=== PATIENT | male | born 1950 ===

== ENCOUNTER 2024-08-20 07:12 | Observation (INO) | payer OTHER ==
[2024-08-20] VITALS (12 sets, daily range): BP systolic 92–174; BP diastolic 59–78
[~2024-08-20] VITALS: Ht 180.3 cm; Wt 198.0 kg
[~2024-08-20 07:12] MED LIST: ACET325 PO; ATOR40TA PO; Amlodipine Bes2.5 MG PO; Aspir 8181 MG PO; FAMO20 PO; LOVA40 PO; TRAZ50 PO; Vitamin C100 M1 PO
[2024-08-20] MEDS ORDERED: Verapamil HCL 2.5 MG/ML 2ML Injection ONE (07:21)
[2024-08-20] MEDS ORDERED: Heparin Sodium 1000 Units/ML 10ML MDV ONE ×2 (07:21→08:57)
[2024-08-20] MEDS ORDERED: NS 1,000 ML IV ONE ×2 (07:22→07:47)
[2024-08-20] MEDS ORDERED: Nitroglycerin 2 MG/20 ML BTL ONE (07:22)
[2024-08-20] MEDS ORDERED: NS 250 ML IV ONE (07:22)
[2024-08-20] MEDS ORDERED: Midazolam HCl 1MG / ML 2ML Vial ONE (07:46)
[2024-08-20] MEDS ORDERED: FentaNYL Citrate 50 MCG/ML 2 ML Injection ONE (07:46)
[2024-08-20] MEDS ORDERED: Tirofiban HCL Monohydrate 3.75 MG/15 ML Vial ONE (08:57)
[2024-08-20] MEDS ORDERED: Atropine Sulfate 0.1 MG/ML 10ML SYR ONE (09:08)
[2024-08-20] MEDS ORDERED: Phenylephrine HCl 100 MCG/ML-NS 10MLSYR (1MG/10ML) ONE (09:14)
[2024-08-20] MEDS ORDERED: Clopidogrel Bisulfate 300 MG Cap ONE (09:42)
[2024-08-20] MEDS ORDERED: CLOP75 PO (10:40)
--- NOTE | 2024-08-20 11:58 | NUR ---
0955- PT BACK TO RECOVERY ROOM S/P PCI WITH 4 STENTS PLACED TO RCA. PT AWAKE AND ALERT, DENIES COMPLAINTS, SITTING UP IN RECLINER. PT SLIGHTLY HYPOTENSIVE, W MAPS >65, PT ASYMPTOMATIC, UP TO BATHROOM RIRI WELL. PT ATE/DRANK RIRI WELL. PT'S AT BEDSIDE. RIGHT RADIAL TR BAND SITE REVIEWED W/TECH; WNL. SITE SOFT W/O BLEEDING, TENDERNESS, OR SWELLING. 1138- 3CC AIR REMOVED FROM BAND, SCANT OOZE NOTED, 2 CC REPLACED. SITE W/O FURTHER BLEEDING, AREA SOFT AND NONTENDER
[2024-08-20] MEDS ORDERED: Calcium Carbonate 500 MG Tab Chew PO ONE (14:40)
--- NOTE | 2024-08-20 14:41 | NUR ---
1235- ALL AIR REMOVED FROM TR BAND. SITE STABLE, W/O HEMATOMA, SWELLING, PAIN, OR BLEEDING. TR BAND REMOVED AT 1330. SITE STABLE. DRSG PLACED. WRIST IMMOBILIZER PLACED. AFTER VERBAL AND WRITTEN DISCHARGE INSTRUCTIONS GIVEN, PT INFORMED ME THAT HE HAD 1-2/10 CHEST PRESSURE TO LEFT CHEST AREA. DENIES SHARP OR ACHE, STATES PAIN IS A VERY MILD CONSTANT PRESSURE. OF NOTE, PT IS BELCHING OFTEN, PT DENIES THAT IT FEELS LIKE HEARTBURN. DR PERKINS CALLED AT 1339 AND GIVEN FULL UPDATE. PT TO BE ADMITTED AND OBSERVED OVER NIGHT. DR PETER CONTACTED, SHORTLY AFTER DR PETER AT BEDSIDE SEE PATIENT. DR MCDONALD ALSO CALLED AND GIVEN UPDATE. PT HAS BEEN UP TO VOID TWICE. PT IS CALM, VISITING WITH , NO DISTRESS NOTED. BP STABLE, PT BRADYCARDIC IN 40'S. BP ADMITTED W HR IN 50'S. PT DENIES DIZZINESS. LEFT FOREARM DC'D WITH DC PLANS. NEW 20G IV PLACED TO LEFT AC AREA. AWAITING BED AND ADMITTING ORDERS.
[2024-08-20] MEDS ORDERED: Acetaminophen 325 MG TABLET PO PRN (15:40)
[2024-08-20] MEDS ORDERED: FLU VACC TS2024-25(6MOS UP)/PF 45 MCG/0.5 ML SYRINGE IM SCH (15:40)
--- NOTE | 2024-08-20 16:26 | NUR ---
REPORT CALLED TO [facility]OMEN SPECIALIST. PT TO ROOM PCU 7 AT 1600 IN STABLE CONDITION. RIGHT RADIAL SITE ACCESSED WITH RN AND REMAINS STABLE. PT HAS REQUESTED TUMS WHICH WAS GIVEN PER DR PETER; NO CHANGE IN CHEST PRESSURE. PT REPORTS MILD CHEST PRESSURE 1-2/10 ON TRANSFER.
--- NOTE | 2024-08-20 16:36 | NUR ---
PT ADMITTED TO PCU 8, ORIENTED TO ROOM SET UP AND CALL LIGHT. PT STATES CHEST PAIN 1-2/10, DESCRIBES LIKE THE START OF HEART BURN STARTING. ENCOURAGED TO NOTIFY RN FOR ANY CHANGES OR INCREASE IN CHEST PAIN. VSS. RW TR BAND SITE WNL, BANDAID OVER SITE WITH VERY SLIGHT BRUISE DISTAL FROM SITE, SOFT. SPLINT TO RW IN PLACE, AWARE OF NWB STATUS. TOLERATING FLUIDS.
--- NOTE | 2024-08-20 17:53 | NUR ---
SUMMARY- S/P STENT X4 RCA TODAY WITH DR CLARKE. PT CLOSE TO DISCHARGE BUT STARTED HAVING MILD CHEST PAIN 09/14, NOT CHANGED SINCE ADMIT TO PCU 7. VSS, TOLERATING FOOD AND FLUIDS. TELE SB 40'S WHEN FIRST TO THE FLOOR, NOW TRENDING UP SR 65-70. WILL CONT TO [facility] OVERNIGHT, WILL REPORT TO NOC RN
[2024-08-20] MEDS ORDERED: Famotidine 20 MG Tab PO SCH (21:00)
[2024-08-20] MEDS ORDERED: TraZODone HCl 50 MG Tab PO SCH (21:00)
[2024-08-21 00:30] VITALS: BP 152/61
[2024-08-21 03:16] VITALS: BP 125/66
[2024-08-21 04:22] LABS: BASOPHILS ABSOLUTE AUTO 0.03 K/mm3 (0.00-0.23); BASOPHILS PERCENT AUTO 0 % (0-2); EOSINOPHILS ABSOLUTE AUTO 0.31 K/mm3 (0.00-0.68); EOSINOPHILS PERCENT AUTO 4 % (0-6); Hematocrit 38.2 % (37.0-53.0); Hemoglobin 13.1 g/dL (13.5-17.5); IMMATURE GRAN ABSOLUTE AUTO 0.01 K/mm3 (0.00-0.10); IMMATURE GRAN PERCENT AUTO 0 % (0-1); LYMPHOCYTES ABSOLUTE AUTO 1.95 K/mm3 (0.84-5.20); LYMPHOCYTES PERCENT AUTO 25 % (21-46); MONOCYTES PERCENT AUTO 9 % (4-13); Mean Corpuscular HGB 31.4 pg (26.0-34.0); Mean Corpuscular HGB Conc 34.3 g/dL (31.5-36.5); Mean Corpuscular Volume 92 fL (80-100); Mean Platelet Volume 11.4 fL (9.1-12.4); NEUTROPHILS ABSOLUTE AUTO 4.97 K/mm3 (1.96-9.15); NEUTROPHILS PERCENT AUTO 62 % (41-73); Platelet Count 152 K/mm3 (150-400); RDW Coefficient Variation 12.1 % (11.7-14.2); RDW Standard Deviation 40.4 fL (35.1-46.3); Red Blood Cell Count 4.17 M/mm3 (4.30-5.90); White Blood Cell Count 7.97 K/mm3 (4.00-11.30)
[2024-08-21 04:52] LABS: Albumin, Blood 3.3 g/dL (3.4-5.0); Albumin/Globulin Ratio 1.1 (0.8-1.8); Bilirubin, Total 0.8 mg/dL (0.1-1.0); Bun/Creatinine Ratio 16.1 (12.0-20.0); Calcium, Blood 9.2 mg/dL (8.5-10.1); Creatinine, Blood 0.93 mg/dL (0.60-1.20); Globulin, Blood 2.9 g/dL (2.2-4.0); Potassium, Blood 4.1 mmol/L (3.5-5.5); Total Protein, Blood 6.2 g/dL (6.4-8.2)
[2024-08-21 07:19] VITALS: BP 124/70
--- NOTE | 2024-08-21 07:22 | NUR ---
ASSUMPTION OF CARE: PATIENT IS ALERT AND ORIENTED X 4, DENIES NUMBNESS TINGLING, CHEST PAIN FREE THROUGHOUT THE NIGHT. RIGHT RADIAL SITE CDI NO HEMATOMA, DENIES DIZZINESS OR LIGHTHEADEDNESS WITH AMBULATION OR ORTHOSTATIC CHANGE. SPOP2 >94% ON RA. ARMBOARD IN PLACE, VERY GOOD ABOUT PROTECTING RADIAL SITE. VSS, AFEBRILE. NO ACUTE CONCERNS FROM THIS RN.
[2024-08-21] MEDS ORDERED: Aspirin 81 MG TabEC PO SCH (09:00)
[2024-08-21] MEDS ORDERED: AmLODIPine Besylate 5 MG Tab PO SCH (09:00)
[2024-08-21] MEDS ORDERED: Enoxaparin 40 MG/0.4 ML SYR SC SCH (09:00)
[2024-08-21] MEDS ORDERED: Clopidogrel Bisulfate 75 MG Tab PO SCH (09:00)
[2024-08-21] MEDS ORDERED: Pravastatin Sodium 20 MG Tab PO SCH (09:00)
[2024-08-21] MEDS ORDERED: METO25ER PO (10:56)
[2024-08-21] MEDS ORDERED: TOPROL XL25 MG PO (11:00)
--- NOTE | 2024-08-21 11:57 | NUR ---
discharge summary: No change from assumption of care. Patient still denies chest pain pressure or sob. IV REMOVED by PCT. Patient and in the room for >30 minutes of education. patient in no sign of distress. WC out by PCT. no questions or concerns from patient or this ghost writer.
[2024-08-22] MEDS ORDERED: Metoprolol Succinate 25 MG TABCR PO SCH (09:00)
== END 2024-08-21 11:57 | disposition home or self-care (01) ==
LOC: MHTC 07:12 → PCU 15:04 → MHTC 15:05 → PCU 15:05
PROVIDERS: ADMIT Family Medicine
DX: I25.118 Atherosclerotic heart disease of native coronary artery with other forms of angina pectoris (principal); I10 Essential (primary) hypertension; K21.9 Gastro-esophageal reflux disease without esophagitis; E78.5 Hyperlipidemia, unspecified; G47.33 Obstructive sleep apnea (adult) (pediatric); G43.909 Migraine, unspecified, not intractable, without status migrainosus; Z88.8 Allergy status to other drugs, medicaments and biological substances; Z79.899 Other long term (current) drug therapy; Z87.891 Personal history of nicotine dependence; Z95.5 Presence of coronary angioplasty implant and graft; Z99.89 Dependence on other enabling machines and devices
CPT/HCPCS: 36415; 76937; 80053; 85025; 85347; 93458; 99152; 99153; A9270; C1725; C1769; C1874; C1887; C1894; C9600; J0461; J1644; J1650; J2250; J2371; J3010; J3246; J7030; J7050; Q9967